=== PATIENT | female | born 1950 | race African-American/Black ===

== ENCOUNTER 2019-10-24 02:42 | Inpatient (IN) | payer OTHER ==
--- NOTE | 2019-10-24 02:57 | PDOC ---
History of Present Illness - General Chief Complaint: CVA/TIA Stated Complaint: POSSIBLE STROKE Time Seen by Provider: 10/24/19 02:52 - History of Present Illness Initial Comments: Ms. Gold is a 69 y/ woman w/hx pre-diabetes p/w dysarthria and L sided weakness. Her daughter reports that at approx 0100 she was woken by her mother, complaining of L sided weakness. She notes that her mother's speech pattern was different than baseline, and that she was slow to respond at that time, although she was answering questions coherently. She denies any similar prior episodes - no hx stroke, TIA. She reports that her weakness has since improved, but she still feels as if it is difficult to speak. Per her daughter she is at baseline at this time. She denies any chest pain, headache, shortness of breath, confusion, ongoing weakness, fevers, chills, dysuria. Last known well time: 0100 Past History - Past Medical History Allergies/Adverse Reactions: Allergies Allergy/AdvReac Type Severity Reaction Status Date / Time No Known Allergies Allergy Verified 10/24/19 02:47 Home Medications: Ambulatory Orders Cetirizine HCl [Zyrtec -] 10 mg PO DAILY 10/24/19 Aspirin [ASA -] 81 mg PO DAILY #30 tab.chew 10/25/19 Atorvastatin Ca [Lipitor] 10 mg PO HS #30 tablet 10/25/19 COPD: No - Psycho Social/Smoking Cessation Hx Smoking History: Never smoked Review of Systems - Review of Systems Able to Perform ROS?: Yes Comments:: ROS: GENERAL/CONSTITUTIONAL: No fever or chills. No weakness. HEAD, EYES, EARS, NOSE AND THROAT: No change in vision. No ear pain or dis charge. No sore throat. CARDIOVASCULAR: No chest pain or shortness of breath RESPIRATORY: No cough, wheezing, or hemoptysis. GASTROINTESTINAL: No nausea, vomiting, diarrhea or constipation. GENITOURINARY: No dysuria, frequency, or change in urination. MUSCULOSKELETAL: No joint or muscle swelling or pain. No neck or back pain. SKIN: No rash NEUROLOGIC: No headache, vertigo, loss of consciousness, or change in strength/sensation. ENDOCRINE: No increased thirst. No abnormal weight change HEMATOLOGIC/LYMPHATIC: No anemia, easy bleeding, or history of blood clots. ALLERGIC/IMMUNOLOGIC: No hives or skin allergy. *Physical Exam - Vital Signs Last Vital Signs Temp Pulse Resp BP Pulse Ox 98.3 F 95 H 18 153/84 98 10/24/19 02:47 10/24/19 02:47 10/24/19 02:47 10/24/19 02:47 10/24/19 02:47 - Physical Exam PE: GENERAL: Awake, alert, and fully oriented, in no acute distress HEAD: No signs of trauma, normocephalic, atraumatic EYES: PERRLA, EOMI, sclera anicteric, conjunctiva clear ENT: Auricles normal inspection, hearing grossly normal, nares patent, oropharynx clear without exudates. Moist mucosa NECK: Normal ROM, supple, no lymphadenopathy, JVD, or masses LUNGS: No distress, speaks full sentences, clear to auscultation bilaterally HEART: Regular rate and rhythm, normal S1 and S2, no murmurs, rubs or gallops, peripheral pulses normal and equal bilaterally. ABDOMEN: Soft, nontender, normoactive bowel sounds. No guarding, no rebound. No masses EXTREMITIES : Normal inspection, Normal range of motion, no edema. No clubbing or cyanosis NEUROLOGICAL: Cranial nerves II through XII grossly intact. 5/5 strength equally bilaterally between upper and lower extremities. Sensation to soft touch intact bilaterally. Normal speech, normal gait, no focal sensorimotor deficits SKIN: Warm, Dry, normal turgor, no rashes or lesions noted NIH Stroke Scale - Last Known Well Date/Time & Onset Date Last Known Well: 10/23/19 Time Last Known Well: 20:45 - Initial Evaluation Level of consciousness: Alert Ask patient the month and their age: Answers both correctly Ask patient to open & close eyes; make fist and let go: Obeys both correctly Best gaze (horizontal eye movement): Normal Visual field testing: No visual field loss Facial paresis (Show teeth/raise eyebrows/close eyes tight): Normal symmetrical movement Motor Function: Left Arm: Normal Motor Function: Right Arm: Normal (extends arm 90 (or 45) degrees for 10 seconds without drift Motor Function: Left Leg: Normal (extends leg 30 degrees for 5 seconds without drift) Motor Function: Right Leg: Normal (extends leg 30 degrees for 5 seconds without drift) Limb Ataxia: No ataxia Sensory(Use pinprick test arms,legs,trunk,face/side to side): Normal Best language (Describe picture, name items, read sentences): No Aphasia Dysarthria (read several words): Normal articulation Extinction and Inattention: No abnormality - Total Score NIH Stroke Scale Score: 0 tPA Exclusion checklist 3-4.5h - Time Elapsed Date last known well: 10/23/19 Time last known well: 20:45 Elaspsed time: 7 Day(s) and 17 Hour(s) and 36 Minutes - Thrombolytic Therapy Candidate Is patient eligible for thrombolytic therapy: No - Exclusion Criteria 3-4.5 hr SBP greater than 185 or DBP greater than 110mmHg despite tx: No Recent IC/spinal surgery,head trauma or stroke<3mos.: No Hx IC hemorrhage, IC neoplasm, AV malformation or aneurysm: No Active internal bleeding: No Blding diathesis(low plt ct, inc PTT,INR>1.7 or use of NOAC): No Symptoms suggest subarachnoid hemorrhage: No CT demonstrates multilobar infarct(>1/3 cerebral hemiphere): No Arterial puncture at noncompressible site in previous 7 days: No Blood glucose concentration less than 50mg/dL (2.7mmol/L): No - Ineligibility reason(s) Reasons No tPA given: Outside of window - delayed arrival TIA Risk Factors - ABCD Score Age: Age = or > 60 Blood Pressure: SBP =/> 140 Clinical Features of TIA: Speech impair w/o uni wk Duration: TIA duration 10-59 min Diabetes: No Total ABCD2 Score (0-7):: 4 Critical Care Time/MDM Note - Medical Decision Making Note: 69F w/hx pre-diabetes p/w acute onset dysphasia, L sided weakness, now resolved. Ddx includes CVA, TIA, hypoglycemia, infection, seizure. NIHSS: 0 Plan: CBC CMP EKG CXR BGM Cardiac profile CT Head without contrast PT/INR, APTT Neurology consult Dispo: Admit 10/24/19 05:22 CT read: No acute infarct visualized. Bulging noted at L cavernous sinus. Plan for admission, follow up inpatient MRI. --- CBC - wnl CMP - wnl Troponin - negative Neurology consult paged, awaiting callback. Plan for admission. --- Case endorsed to hospitalist team, patient admitted. Discharge - Discharge Information Problems reviewed: Yes Clinical Impression/Diagnosis: Cerebrovascular accident (CVA) Qualifiers: CVA mechanism: unspecified Qualified Code(s): I63.9 - Cerebral infarction, unspecified Condition: Stable Disposition: HOME - Admission Yes - Follow up/Referral - Patient Discharge Instructions - Post Discharge Activity
--- NOTE | 2019-10-24 03:16 | PDOC ---
Attending Attestation - Resident Resident Name: Yan Clark - ED Attending Attestation I have performed the following: I have examined & evaluated the patient, The case was reviewed & discussed with the resident, I agree w/resident's findings & plan - HPI HPI: 10/24/19 03:16 Pt had dysarthria at 8pm and left sided weakness 10/24/19 03:43 - Physicial Exam PE: 10/24/19 06:11 Agree with resident exam - Medical Decision Making 10/24/19 04:21 cardiac enzymes negative coags normal 10/24/19 05:28 Patient Name: AURE MIRZA THIS IS A PRELIMINARY REPORT FROM [facility] DATE OF SERVICE: 2019-10-24 03:25:37 IMAGES: 441 EXAM: HEAD CT WITHOUT CONTRAST HISTORY: Weakness COMPARISON: None. FINDINGS: No detectable infarct. Please note that early infarcts may not be detectable on CT. MRI is more sensitive. There is also bulging of the left cavernous sinus relative to the right. The possibility of left cavernous sinus mass or other lesion such as intracavernous carotid aneurysm should be considered. MRI without and with contrast would also be most helpful for evaluation of this area. No hemorrhage. No edema shift or herniation. Osseous structures are intact. 10/28/19 23:01 Pt will be signed out to the day team Heart Score/ECG Review - ECG Intrepretation Rhythm: Regular Rhythm - [place]: Normal - P and MA Delta Wave(s) Present: No WPW: No - QRS Poor R Wave Progression: No Q Wave Present: No - ST and T Early Repolarization: No Non Specific ST-T Wave changes: No Flattened T Waves: No Prolonged Q-T Interval: No - ECG Impressions Normal ECG: Yes Non-specific ST Elevation: No Ischemic Changes: No Bradycardia: No Torsades davonte Pointes: No WPW: No
[2019-10-24 03:58] LABS: INR 0.93 (0.83-1.09)
[2019-10-24 04:35] LABS: BASO % 0.9 % (0-2.0); EOS % 1.7 % (0-4.5); HEMATOCRIT 38.7 % (32.4-45.2); HEMOGLOBIN 12.7 GM/dL (10.7-15.3); LYMPH % 58.4 % (8-40); MCH 28.3 pg (25.7-33.7); MCHC 32.9 g/dl (32.0-36.0); MEAN PLT VOLUME 9.2 fl (7.5-11.1); MONO % 6.7 % (3.8-10.2); NEUT % 32.3 % (42.8-82.8); PLATELET COUNT 225 K/MM3 (134-434); RDW 14.3 % (11.6-15.6); WHITE BLOOD COUNT 7.3 K/mm3 (4.0-10.0)
[2019-10-24 05:26] LABS: ALBUMIN 3.7 g/dl (3.4-5.0); BILIRUBIN,TOTAL 0.3 mg/dL (0.2-1); BLOOD UREA NITROGEN 23.9 mg/dL (7-18); CALCIUM 9.4 mg/dL (8.5-10.1); POTASSIUM 4.1 mmol/L (3.5-5.1); TOT PROT 7.2 g/dl (6.4-8.2)
[2019-10-24] MEDS ORDERED: ASPIRIN 81 MG CHEWABLE TABLETS PO SCH (06:26)
[2019-10-24] MEDS ORDERED: ATORVASTATIN CA 80 MG TABLET (FP) PO STA (06:28)
--- NOTE | 2019-10-24 06:30 | HP ---
CHIEF COMPLAINT: dysarthria, L sided weakness PCP: Dr. Jasmina Viera HISTORY OF PRESENT ILLNESS: 69 y.o. F PMH pre-diabetes presenting for dysarthria & L sided weakness. Patient states these symptoms began around 1:45AM this morning and awoke her from sleep. She has never had these symptoms in the past and had her daughter call EMS to bring to into the ED. On arrival to the ED patient's symptoms were almost fully resolved. She denies any mental status changes, headaches or sensory/ motor deficits. Patient is able to ambulate well and ambulates without assistance at baseline. ER course was notable for: (1) ct head-- no acute infarct/ hemorrhage (2) (3) Recent Travel: denies PAST MEDICAL HISTORY: pre-diabetes PAST SURGICAL HISTORY: none Social History: Smoking: denies Alcohol: denies Drugs: denies Allergies No Known Allergies Allergy (Verified 10/24/19 02:47) Family history: DM, HTN in both parents. Father of PA at age 60. HOME MEDICATIONS: estrogen patch REVIEW OF SYSTEMS CONSTITUTIONAL: Absent: fever, chills, diaphoresis, generalized weakness, malaise, loss of appetite, weight change HEENT: Absent: rhinorrhea, nasal congestion, throat pain, throat swelling, difficulty swallowing, mouth swelling, ear pain, eye pain, visual changes CARDIOVASCULAR: Absent: chest pain, syncope, palpitations, irregular heart rate, lightheadedness , peripheral edema RESPIRATORY: Absent: cough, shortness of breath, dyspnea with exertion, orthopnea, wheezing, stridor, hemoptysis GASTROINTESTINAL: Absent: abdominal pain, abdominal distension, nausea, vomiting, diarrhea, constipation, melena, hematochezia GENITOURINARY: Absent: dysuria, frequency, urgency, hesitancy, hematuria, flank pain, genital pain MUSCULOSKELETAL: Absent: myalgia, arthralgia, joint swelling, back pain, neck pain SKIN: Absent: rash, itching, pallor HEMATOLOGIC/IMMUNOLOGIC: Absent: easy bleeding, easy bruising, lymphadenopathy, frequent infections ENDOCRINE: Absent: unexplained weight gain, unexplained weight loss, heat intolerance, cold intolerance NEUROLOGIC: dysarthria, Left face, LUE & LLE weakness Absent: headache, focal weakness or paresthesias, dizziness, unsteady gait, seizure, mental status changes, bladder or bowel incontinence PSYCHIATRIC: Absent: anxiety, depression, suicidal or homicidal ideation, hallucinations. PHYSICAL EXAMINATION Vital Signs - 24 hr 10/24/19 10/24/19 10/24/19 02:47 03:22 03:24 Temperature 98.3 F Pulse Rate 95 H 86 Pulse Rate [ Left] Respiratory 18 Rate Blood Pressure 153/84 Blood Pressure [Left Arm] O2 Sat by Pulse 98 97 98 Oximetry (%) 10/24/19 06:05 Temperature Pulse Rate Pulse Rate [ 61 Left] Respiratory 18 Rate Blood Pressure Blood Pressure 111/68 [Left Arm] O2 Sat by Pulse 99 Oximetry (%) GENERAL: Awake, alert, and fully oriented, in no acute distress. HEENT: NCAT. EOMI no visual field deficits. PERRLA. MMM. No JVD. LUNGS: Breath sounds equal, clear to auscultation bilaterally. No wheezes, and no crackles. No accessory muscle use. HEART: Regular rate and rhythm, normal S1 and S2 without murmur, rub or gallop. ABDOMEN: Soft, nontender, not distended, normoactive bowel sounds, no guarding MUSCULOSKELETAL: Normal range of motion at all joints. EXTREMITIES: 2+ pulses, warm, well-perfused. No peripheral edema. NEUROLOGICAL: Cranial nerves II-XII intact. Normal articulation. Motor 5/5 and sensory intact in all extremities. PSYCHIATRIC: Appropriate mood and affect. SKIN: Warm, dry, normal turgor, no rashes or lesions noted Laboratory Results - last 24 hr 10/24/19 10/24/19 10/24/19 03:00 03:00 03:00 WBC 7.3 RBC 4.50 Hgb 12.7 Hct 38.7 MCV 86.0 MCH 28.3 MCHC 32.9 RDW 14.3 Plt Count 225 MPV 9.2 Absolute Neuts (auto) 2.4 Neutrophils % 32.3 L Lymphocytes % 58.4 H Monocytes % 6.7 Eosinophils % 1.7 Basophils % 0.9 Nucleated RBC % 0 PT with INR INR PTT (Actin FS) 20.4 L Sodium Potassium Chloride Carbon Dioxide Anion Gap BUN Creatinine Est GFR (CKD-EPI)AfAm Est GFR (CKD-EPI)NonAf Random Glucose Calcium Total Bilirubin AST ALT Alkaline Phosphatase Creatine Kinase 137 Troponin I < 0.02 Total Protein Albumin 10/24/19 10/24/19 03:03 03:03 WBC RBC Hgb Hct MCV MCH MCHC RDW Plt Count MPV Absolute Neuts (auto) Neutrophils % Lymphocytes % Monocytes % Eosinophils % Basophils % Nucleated RBC % PT with INR 11.00 INR 0.93 PTT (Actin FS) Sodium 140 Potassium 4.1 Chloride 108 H Carbon Dioxide 27 Anion Gap 5 L BUN 23.9 H Creatinine 1.0 Est GFR (CKD-EPI)AfAm 67.51 Est GFR (CKD-EPI)NonAf 58.25 Random Glucose 126 H Calcium 9.4 Total Bilirubin 0.3 AST 24 ALT 22 Alkaline Phosphatase 67 Creatine Kinase Troponin I Total Protein 7.2 Albumin 3.7 ASSESSMENT/PLAN: 69 y.o. F PMH pre-diabetes presenting for dysarthria & L sided weakness. #CVA -CT head showing no acute hemorrhage/ infarct/ herniation. Noted a bulging L cavernous sinus relative to the right. Possible L cavernous sinus mass/lesion intracavernous carotid aneurysm. -NIHSS 0 on my exam -noted patient sing estrogen patch for menopausal symptoms -Dr. Graham consulted for neuro, f/u recs-- poss brain MRI today -ASA, high intensity statin -f/u ekg, echo, carotid US -Fall precautions -Physical therapy -speech & swallow -cardiac monitoring #Pre-diabetes -BGMs -F/u hba1c #FEN -gentle hydration -trend lytes replete prn -npo. f/u speech & swallow eval #PPX -SCDs #Dispo telemetry Visit type - Emergency Visit Emergency Visit: Yes Care time: The patient presented to the Emergency Department on the above date and was hospitalized for further evaluation of their emergent condition. - New Patient This patient is new to me today: Yes Date on this admission: 10/24/19 - Critical Care Critical Care patient: No ATTENDING PHYSICIAN STATEMENT I saw and evaluated the patient. I reviewed the resident's note and discussed the case with the resident. I agree with the resident's findings and plan as documented. SUBJECTIVE: OBJECTIVE: ASSESSMENT AND PLAN:
--- NOTE | 2019-10-24 06:31 | PN.NIHSS ---
NIH Stroke Scale - Initial Evaluation Level of consciousness: Alert Ask patient the month and their age: Answers both correctly Ask patient to open & close eyes; make fist and let go: Obeys both correctly Best gaze (horizontal eye movement): Normal Visual field testing: No visual field loss Facial paresis (Show teeth/raise eyebrows/close eyes tight): Normal symmetrical movement Motor Function: Left Arm: Normal Motor Function: Right Arm: Normal (extends arm 90 (or 45) degrees for 10 seconds without drift Motor Function: Left Leg: Normal (extends leg 30 degrees for 5 seconds without drift) Motor Function: Right Leg: Normal (extends leg 30 degrees for 5 seconds without drift) Limb Ataxia: No ataxia Sensory(Use pinprick test arms,legs,trunk,face/side to side): Normal Best language (Describe picture, name items, read sentences): No Aphasia Dysarthria (read several words): Normal articulation Extinction and Inattention: No abnormality - Total Score NIH Stroke Scale Score: 0
--- NOTE | 2019-10-24 06:39 | PN ---
Teaching Attending Note Name of Resident: April Santos ATTENDING PHYSICIAN STATEMENT I saw and evaluated the patient. I reviewed the resident's note and discussed the case with the resident. I agree with the resident's findings and plan as documented. SUBJECTIVE: 69-year-old woman with a history of prediabetes status post hysterectomy 20 years ago complained of left upper and lower extremity numbness as well as dysarthria that started at 1:50 AM on 10/23/2019. Symptoms resolved at 2:30 AM when patient arrived at hospital. She has never had these symptoms before. Also reports some mild dizziness but denied any headaches or focal weaknesses. Patient reports that she takes an estrogen patch, former smokersmoked for 20 years, quit 20 years ago. OBJECTIVE: Last Vital Signs Temp Pulse Resp BP Pulse Ox 98.3 F 78 16 112/64 96 10/24/19 02:47 10/24/19 06:05 10/24/19 06:05 10/24/19 06:05 10/24/19 06:05 On physical exam patient was a pleasant woman, not in any distress. Cranial nerves were intact, upper extremity motor was 5 out of 5, no sensory deficits appreciated. No patellar or bicipital hyperreflexia noted. Negative Babinski sign bilaterally, normal [id number] test bilaterally and kathleen test bilaterally. Abdomen soft, nontender, cardiovascular exam S1, S2 no murmurs. Lungs clear to auscultation bilaterally. Abnormal Lab Results 10/24/19 10/24/19 10/24/19 03:00 03:00 03:03 Neutrophils % 32.3 L Lymphocytes % 58.4 H PTT (Actin FS) 20.4 L Chloride 108 H Anion Gap 5 L BUN 23.9 H Random Glucose [address] readno detectable infarct, bulging of left cavernous sinus relative to the right. Possibility of left cavernous sinus mass or other lesion such as cavernous artery aneurysm should be considered. No hemorrhage, no edema, osseous structures intact. Chest x-ray reviewed. Overpenetrated, sharp costophrenic angles bilaterally. ASSESSMENT AND PLAN: 69-year-old woman with TIA. Symptoms now completely resolved.Passed bedside swallow test.Normal neuro exam. Admit to telemetry Aspirin Statin Transthoracic echo Carotid Doppler Follow-up official head CT report Physical therapy evaluation Neurology consult Neurochecks every 4 hours DVT prophylaxisSCDs
[2019-10-24] MEDS ORDERED: ATORVASTATIN CA 40 MG TABLET (FP) ONE ×2 (06:40→06:56)
[2019-10-24] MEDS: SODIUM CHLORIDE 1,000 ML IV SCH (07:04)
[2019-10-24 07:19] LABS: BASO % 0.8 % (0-2.0); EOS % 0.1 % (0-4.5); HEMATOCRIT 38.4 % (32.4-45.2); HEMOGLOBIN 12.8 GM/dL (10.7-15.3); LYMPH % 21.6 % (8-40); MCH 28.4 pg (25.7-33.7); MCHC 33.2 g/dl (32.0-36.0); MEAN CELL VOLUME 85.4 fl (80-96); MEAN PLT VOLUME 8.7 fl (7.5-11.1); MONO % 6.7 % (3.8-10.2); NEUT % 70.8 % (42.8-82.8); PLATELET COUNT 210 K/MM3 (134-434); WHITE BLOOD COUNT 6.6 K/mm3 (4.0-10.0)
[2019-10-24] MEDS ORDERED: ASPIRIN 325 MG TABLET PO SCH (07:19)
[2019-10-24 08:03] LABS: ALBUMIN 3.8 g/dl (3.4-5.0); ALK PHOS 66 U/L (45-117); ANION GAP 4 MMOL/L (8-16); BILIRUBIN,TOTAL 0.3 mg/dL (0.2-1); BLOOD UREA NITROGEN 20.4 mg/dL (7-18); CALCIUM 9.3 mg/dL (8.5-10.1); CHLORIDE 107 mmol/L (98-107); CHOLESTEROL 224 mg/dL (50-200); CO2 27 mmol/L (21-32); CREATININE 0.8 mg/dL (0.55-1.3); GLUCOSE,RANDOM 113 mg/dL (74-106); HDL CHOLESTEROL 114 mg/dL (40-60); LDL CHOLESTEROL (ONLY SJRH) 89 mg/dL (5-100); POTASSIUM 5.4 mmol/L (3.5-5.1); SGOT/AST 38 U/L (15-37); SGPT/ALT 24 U/L (13-61); SODIUM 138 mmol/L (136-145); TOT PROT 7.6 g/dl (6.4-8.2); TRIGLYCERIDES 45 mg/dL (0-150)
--- NOTE | 2019-10-24 09:11 | EKG ---
Test Reason : Blood Pressure : / mmHG Vent. Rate : 082 BPM Atrial Rate : 082 BPM P-R Int : 216 ms QRS Dur : 086 ms QT Int : 398 ms P-R-T Axes : 059 041 047 degrees QTc Int : 464 ms SINUS RHYTHM WITH 1ST DEGREE A-V BLOCK RIGHT ATRIAL ENLARGEMENT BORDERLINE ECG NO PREVIOUS ECGS AVAILABLE Confirmed by Katelyn Aguirre ([id number]) on 10/24/2019 9:11:26 AM Referred By: Confirmed By:Katelyn Aguirre
[2019-10-24 11:40] LABS: ANISOCYTOSIS 1+; MACROCYTOSIS 0; OVALOCYTE 1+; PLATELET ESTIMATE NORMAL; TARGET CELLS 1+; TEAR DROP CELLS 1+
--- NOTE | 2019-10-24 14:22 | CONSULT ---
Admitting History and Physical - Admission History of Present Illness: Per EMR HISTORY OF PRESENT ILLNESS: 69 y.o. F PMH pre-diabetes presenting for dysarthria & L sided weakness. Patient states these symptoms began around 1:45AM this morning and awoke her from sleep. She has never had these symptoms in the past and had her daughter call EMS to bring to into the ED. On arrival to the ED patient's symptoms were almost fully resolved Pt reported that she had difficulty talking, "a disconnect" and it was unclear. Symptoms resolved when I evaluated her at 2:20 pm in ED. Pt tolerating PO diet without difficulty History Source: Patient Limitations to Obtaining History: No Limitations - Smoking History Smoking history: Never smoked - Social History Occupation: Legal assistent at [employer] History - Admission Reason For Visit: CEREBROVASCULAR ACCIDENT (CVA) - Diagnostics X-ray: Report Reviewed CT Scan: Report Reviewed Other: Report Reviewed (carotid) - General Mental Status: Alert and Oriented, Awake and Alert, Able to Follow Commands Attention: Intact Ability to Follow Directions: Excellent Head/Neck Control: WFL - Hearing Hearing: Normal Speech Evaluation - Communication Primary Language: [place] Communication: Yes: Within Normal Limits Oral Expression Ability: Yes: No Impairment - Speech Production Able to Make Needs Known: Yes: WNL Intelligibility: Yes: WNL - Speech Characteristics Voice Loudness: Normal Voice Pitch: Yes: Normal Voice Phonatory-based Quality: Yes: Normal Speech Pattern: Normal Speech Clarity: < 100% Nasal Resonance: Normal Articulation: Yes: Precise Rate of Speech: Intact - Language/Auditory Comprehension Follows: Yes: Complex Commands Observation: Able to respond to yes/no queries: Yes, Yes/No Confusion: No, Comprehends Conversational Speech: Yes - Language/Verbal Expression Able to Respond to Simple Queries: Yes: WNL Able to Communicate Wants and Needs: Yes: WNL Functional Communication Status: Yes: WNL - Memory/Perception termite control technician Memory: Yes: WNL Short Term Memory: Yes: WNL - Swallow Evaluation/Bedside Assessment Current Nutritional Intake: Regular, Thin Liquids Oral Secretions: Yes: WFL Dentition: Yes: Adequate Facial Symmetry at Rest: Symmetrical Facial Symmetry on Retraction: Symmetrical Facial Movement: Controlled Sensation: Normal Against Resistance Opening: Normal Against Resistance Closing: Normal Pucker Lips: Normal Smile: Normal Lingual Movement: Normal, Symmetric Lingual Speed of Movement: Normal Lingual Movement Strgth Against Opposition: Normal Lingual Movement Characteristics: Normal Velopharyngeal Movement: Normal Laryngeal Elevation: WFL Laryngeal Movement: Able to Palpate Rate of Intake: WFL Bolus Size: WFL Labial Seal: WFL Chewing: WFL Oral Prep Time: WFL A-P Transit: WFL Pocketing: None Timing of Swallow: WFL Coughing/Throat Clear: No Change in Voice: No Recommendations - Speech Evaluation, Impression/Plan Impression: Symptoms resolved. Speech, language, cognition, swallowing intact - Dysphagia Impressions/Plan Swallowing Skills: [facility] Dysphagia Impressions: No Impairment *Silent aspiration: cannot be R/O at bedside - Recommendations Diet Consistency: Regular Medication Administration: Whole with water Liquids: Thin Liquids
--- NOTE | 2019-10-24 15:48 | ECHO ---
Name: AURE MIRZA Exam:Adult Echocardiogram Study Date: 10/24/2019 03:19 PM Age: 69 yrs Reason For Study: r/o CVA, TIA, STROKE Height: 62 in Weight: 150 lb BSA: 1.7 m2 MMode/2D Measurements & Calculations IVSd: 1.3 cm Ao root diam: 3.2 cm LVIDd: 3.7 cm LA dimension: 3.0 cm LVIDs: 2.3 cm ACS: 2.0 cm LVPWd: 1.2 cm EDV(Teich): 57.4 ml LVOT diam: 1.9 cm ESV(Teich): 17.6 ml LAV (MOD-bp): 61.1 ml TAPSE: 2.5 cm RV S Mukesh: 16.0 cm/sec Doppler Measurements & Calculations MV E max mukesh: 77.1 cm/sec Ao V2 max: 146.6 cm/sec MV A max mukesh: 83.4 cm/sec Ao max P.6 mmHg MV E/A: 0.92 Ao V2 mean: 107.8 cm/sec MV dec time: 0.21 sec Ao mean P.0 mmHg Ao V2 VTI: 28.1 cm JOSEPH(I,D): 3.0 cm2 JOSEPH(V,D): 2.7 cm2 LV V1 max P.3 mmHg SV(LVOT): 84.6 ml LV V1 mean P.7 mmHg LV V1 max: 134.8 cm/sec LV V1 mean: 89.6 cm/sec LV V1 VTI: 29.0 cm TR max mukesh: 217.2 cm/sec PA V2 max: 101.8 cm/sec TR max P.9 mmHg PA max P.1 mmHg Med Peak E' Mukesh: 9.0 cm/sec Med E/e': 8.5 Lat Peak E' Mukesh: 12.7 cm/sec Lat E/e': 6.1 Procedure Study Quality: Fair. Left Ventricle The left ventricle is normal in size. There is mild concentric left ventricular hypertrophy. The left ventricular ejection fraction is normal. Ejection Fraction = 65-70%. The transmitral spectral Doppler flow pattern is suggestive of impaired LV relaxation. Right Ventricle The right ventricle is normal in size and function. Atria Borderline left atrial enlargement. Mitral Valve The mitral valve leaflets appear normal. There is no evidence of stenosis, fluttering, or prolapse. T here is trace mitral regurgitation. Tricuspid Valve The tricuspid valve is normal. There is trace tricuspid regurgitation. Aortic Valve The aortic valve is normal in structure and function. Pulmonic Valve The pulmonic valve is not well visualized. Great Vessels The aortic root is normal size. Pericardium/Pleura There is no pericardial effusion. Interpretation Summary LV: Normal size,mild LVH,normal systolic function,EF 65-70%,impaired relaxation RV: Normal Trace TR,MR. Katelyn Aguirre 10/24/2019 03:48 PM
[2019-10-24] MEDS ORDERED: SODIUM CHLORIDE 0.9% 500 ML INFUS.BAG IV ONE (17:52)
--- NOTE | 2019-10-24 17:54 | PN ---
Physical Exam: SUBJECTIVE: Patient seen and examined at bedside, admitted for TIA involving parathesia of LUE,LLL and dysarthria, symptoms now resolved, awaiting MRI/neuro eval, VS otherwise stable. OBJECTIVE: Vital Signs Period Temp Pulse Resp BP Sys/Rolon Pulse Ox Last 24 Hr 98.3 F 78-95 16-18 112-153/64-84 96-98 GENERAL: The patient is awake, alert, and fully oriented, in no acute distress. HEAD: Normal with no signs of trauma. EYES: PERRL, extraocular movements intact, sclera anicteric, conjunctiva clear. No ptosis. ENT: Ears normal, nares patent, oropharynx clear without exudates, moist mucous membranes. NECK: Trachea midline, full range of motion, supple. LUNGS: Breath sounds equal, clear to auscultation bilaterally, no wheezes, no crackles, no accessory muscle use. HEART: Regular rate and rhythm, S1, S2 without murmur, rub or gallop. ABDOMEN: Soft, nontender, nondistended, normoactive bowel sounds, no guarding, no rebound, no hepatosplenomegaly, no masses. EXTREMITIES: 2+ pulses, warm, well-perfused, no edema. NEUROLOGICAL: Cranial nerves II through XII grossly intact. Normal speech, gait not observed. PSYCH: Normal mood, normal affect. SKIN: Warm, dry, normal turgor, no rashes or lesions noted Laboratory Results - last 24 hr 10/24/19 10/24/19 10/24/19 03:00 03:00 03:00 WBC 7.3 RBC 4.50 Hgb 12.7 Hct 38.7 MCV 86.0 MCH 28.3 MCHC 32.9 RDW 14.3 Plt Count 225 MPV 9.2 Absolute Neuts (auto) 2.4 Neutrophils % 32.3 L Neutrophils % (Manual) 31.0 L Band Neutrophils % 0.0 Lymphocytes % 58.4 H Lymphocytes % (Manual) 35.0 Monocytes % 6.7 Monocytes % (Manual) 5 Eosinophils % 1.7 Eosinophils % (Manual) 0.0 Basophils % 0.9 Basophils % (Manual) 1.0 Myelocytes % (Man) 0 Promyelocytes % (Man) 0 Blast Cells % (Manual) 0 Nucleated RBC % 0 Metamyelocytes 0 Hypochromia 0 Platelet Estimate Normal Platelet Comment Present Polychromasia 0 Poikilocytosis 1+ Anisocytosis 1+ Microcytosis 1+ Macrocytosis 0 Target Cells 1+ Tear Drop Cells 1+ Ovalocytes 1+ Eleazar Cells 1+ PT with INR INR PTT (Actin FS) 20.4 L Sodium Potassium Chloride Carbon Dioxide Anion Gap BUN Creatinine Est GFR (CKD-EPI)AfAm Est GFR (CKD-EPI)NonAf Random Glucose Hemoglobin A1c % Calcium Total Bilirubin AST ALT Alkaline Phosphatase Creatine Kinase 137 Creatine Kinase Index CK-MB (CK-2) Troponin I < 0.02 Total Protein Albumin Triglycerides Cholesterol Total LDL Cholesterol HDL Cholesterol Blood Type Antibody Screen 10/24/19 10/24/19 10/24/19 03:03 03:03 07:00 WBC RBC Hgb Hct MCV MCH MCHC RDW Plt Count MPV Absolute Neuts (auto) Neutrophils % Neutrophils % (Manual) Band Neutrophils % Lymphocytes % Lymphocytes % (Manual) Monocytes % Monocytes % (Manual) Eosinophils % Eosinophils % (Manual) Basophils % Basophils % (Manual) Myelocytes % (Man) Promyelocytes % (Man) Blast Cells % (Manual) Nucleated RBC % Metamyelocytes Hypochromia Platelet Estimate Platelet Comment Polychromasia Poikilocytosis Anisocytosis Microcytosis Macrocytosis Target Cells Tear Drop Cells Ovalocytes Eleazar Cells PT with INR 11.00 INR 0.93 PTT (Actin FS) Sodium 140 Potassium 4.1 Chloride 108 H Carbon Dioxide 27 Anion Gap 5 L BUN 23.9 H Creatinine 1.0 Est GFR (CKD-EPI)AfAm 67.51 Est GFR (CKD-EPI)NonAf 58.25 Random Glucose 126 H Hemoglobin A1c % 6.1 Calcium 9.4 Total Bilirubin 0.3 AST 24 ALT 22 Alkaline Phosphatase 67 Creatine Kinase Creatine Kinase Index CK-MB (CK-2) Troponin I Total Protein 7.2 Albumin 3.7 Triglycerides Cholesterol Total LDL Cholesterol HDL Cholesterol Blood Type Antibody Screen 10/24/19 10/24/19 10/24/19 07:00 07:00 07:00 WBC 6.6 RBC 4.50 Hgb 12.8 Hct 38.4 MCV 85.4 MCH 28.4 MCHC 33.2 RDW 14.0 Plt Count 210 MPV 8.7 Absolute Neuts (auto) 4.6 Neutrophils % 70.8 D Neutrophils % (Manual) Band Neutrophils % Lymphocytes % 21.6 D Lymphocytes % (Manual) Monocytes % 6.7 Monocytes % (Manual) Eosinophils % 0.1 D Eosinophils % (Manual) Basophils % 0.8 Basophils % (Manual) Myelocytes % (Man) Promyelocytes % (Man) Blast Cells % (Manual) Nucleated RBC % 0 Metamyelocytes Hypochromia Platelet Estimate Platelet Comment Polychromasia Poikilocytosis Anisocytosis Microcytosis Macrocytosis Target Cells Tear Drop Cells Ovalocytes [place] Cells PT with INR INR PTT (Actin FS) Sodium 138 Potassium 5.4 H Chloride 107 Carbon Dioxide 27 Anion Gap 4 L BUN 20.4 H Creatinine 0.8 Est GFR (CKD-EPI)AfAm 88.42 Est GFR (CKD-EPI)NonAf 76.29 Random Glucose 113 H Hemoglobin A1c % Calcium 9.3 Total Bilirubin 0.3 AST 38 H ALT 24 Alkaline Phosphatase 66 Creatine Kinase 194 H Creatine Kinase Index 0.7 CK-MB (CK-2) 1.5 Troponin I < 0.02 Total Protein 7.6 Albumin 3.8 Triglycerides 45 Cholesterol 224 H Total LDL Cholesterol 89 HDL Cholesterol 114 H Blood Type O NEGATIVE Antibody Screen Negative Active Medications Generic Name Dose Route Start Last Admin Trade Name Freq PRN Reason Stop Dose Admin Aspirin 81 mg 10/25/19 10:00 Ecotrin - PO DAILY NAVEED Sodium Chloride 1,000 mls @ 42 mls/hr 10/24/19 06:30 10/24/19 07:04 Normal Saline - IV 42 mls/hr ASDIR NAVEED Administration Sodium Chloride 1,000 ml 10/24/19 17:52 Normal Saline - IV 10/24/19 17:53 ONCE ONE ASSESSMENT/PLAN: 69 AA female, h/o pre-DM2, otherwise no significant PMHx, presents with episode of dysarthria with L sided weakness/parathesia, now resolved. TIA CT-head neg. for infarct/bleed, awaiting MRI of brain symptoms resolved currently, NIHSS 0 cont. ASA, high intensity statin, would be reasonable to DC estrogen patch in view of cerebrovascular infarct risk Echo WNL, Carotid US no HD significant blockage Fall precautions PT eval, SS eval Cont. Tele monitoring, neurochecks Neuro consult: Dr Graham Pre DM2 counseld on diet, exercise, weight loss DM diet may benefit from Metformin as outpatient DVT ppx: Lovenox SC Tele monitoring Visit type - Emergency Visit Emergency Visit: Yes ED Registration Date: 10/24/19 Care time: The patient presented to the Emergency Department on the above date and was hospitalized for further evaluation of their emergent condition. - New Patient This patient is new to me today: Yes Date on this admission: 10/24/19 - Critical Care Critical Care patient: No - Discharge Referral Referred to [facility] Med [facility].: No
[2019-10-24 22:48] VITALS: BMI 27.9
[2019-10-25] MEDS: SODIUM CHLORIDE 1,000 ML IV SCH (06:53)
[2019-10-25 07:50] LABS: BASO % 0.8 % (0-2.0); EOS % 1.2 % (0-4.5); HEMATOCRIT 39.4 % (32.4-45.2); HEMOGLOBIN 12.9 GM/dL (10.7-15.3); LYMPH % 45.7 % (8-40); MCH 27.9 pg (25.7-33.7); MCHC 32.8 g/dl (32.0-36.0); MEAN CELL VOLUME 85.2 fl (80-96); MEAN PLT VOLUME 8.7 fl (7.5-11.1); MONO % 6.7 % (3.8-10.2); NEUT % 45.6 % (42.8-82.8); PLATELET COUNT 225 K/MM3 (134-434); RBC 4.62 M/mm3 (3.60-5.2); RDW 14.2 % (11.6-15.6); WHITE BLOOD COUNT 6.3 K/mm3 (4.0-10.0)
[2019-10-25 08:10] LABS: ALBUMIN 3.6 g/dl (3.4-5.0); BILIRUBIN,TOTAL 0.6 mg/dL (0.2-1); BLOOD UREA NITROGEN 13.3 mg/dL (7-18); CALCIUM 9.3 mg/dL (8.5-10.1); CREATININE 0.8 mg/dL (0.55-1.3); TOT PROT 7.1 g/dl (6.4-8.2)
[2019-10-25 09:51] LABS: URINE APPEARANCE CLEAR; URINE BILIRUBIN NEGATIVE (NEGATIVE); URINE COLOR YELLOW; URINE GLUCOSE (UA) NEGATIVE (NEGATIVE); URINE KETONE NEGATIVE (NEGATIVE); URINE LEUK ESTERASE NEGATIVE (NEGATIVE); URINE NITRITE NEGATIVE (NEGATIVE); URINE PROTEIN NEGATIVE (NEGATIVE)
[2019-10-25] MEDS ORDERED: ASPIRIN COATED 81 MG TABLET.EC PO SCH (10:00)
--- NOTE | 2019-10-25 14:23 | CON.NEURO ---
Consult Consult Specialty:: [place] Referred by:: PCP Reason for Consultation:: TIA - History of Present Illness History of Present Illness: this is a very pleasant 69-year-old right-handed man with history of diabetes not on any medication who presented to the hospital with a chief complaint of difficulty expressing himself and difficulty with left-sided numbness questionable weakness patient was admitted for questionable TIA upon presentation to the emergency room the NIH stroke scale was 0. Patient was not a candidate for TPA. CAT scan revealed no evidence of acute pathology patient was admitted to the telemetry for further treatment and management I reviewed MRI images of the patient which revealed no evidence of acute pathology. No evidence of cardiac arrhythmia. - History Source History Provided By: Patient Limitations to Obtaining History: No Limitations - Past Medical History ...: No - Alcohol/Substance Use Hx Alcohol Use: Yes (daily glass wine) - Smoking History Smoking history: Never smoked - Social History Occupation: Legal assistent at [employer] Home Medications - Allergies Allergies/Adverse Reactions: Allergies Allergy/AdvReac Type Severity Reaction Status Date / Time No Known Allergies Allergy Verified 10/24/19 02:47 - Home Medications Home Medications: Ambulatory Orders Cetirizine HCl [Zyrtec -] 10 mg PO DAILY 10/24/19 Family Medical History Family History: Unremarkable Review of Systems - Review of Systems Constitutional: reports: No Symptoms Eyes: reports: No Symptoms HENT: reports: No Symptoms Neurological: reports: Headache, Numbness, Parasthesia Physical Exam-Neuro Vital Signs: Vital Signs Temperature 98.6 F 10/25/19 13:33 Pulse Rate 73 10/25/19 13:33 Respiratory Rate 14 10/25/19 13:33 Blood Pressure 121/77 10/25/19 13:33 O2 Sat by Pulse Oximetry (%) 96 10/25/19 09:00 Constitutional: Yes: Well Nourished Neck: Yes: WNL Cardiovascular: Yes: WNL Labs: CBC, BMP 10/25/19 07:13 10/25/19 07:13 INR, PTT INR 0.93 (0.83-1.09) 10/24/19 03:03 - Neuro Exam Level Of Consciousness: Yes: Oriented to Person, Oriented to Place, Oriented to Time Eyes: Yes: PERRLA Speech: WNL Dominant Hand: Right Cranial Nerves II-XII Intact: Yes Gag: Present DTR's: 1+ Left Bicep, 1+ Right Bicep, 1+ Left Tricep, 1+ Right Tricep Response to light touch: Normal Response to pain prick: Normal Response to temperature: Normal Motor Strength: 3/5: Left Arm, Right Arm, Left Leg, Right Leg Gait: Deferred NIH Stroke Scale - Last Known Well Date/Time & Onset Date Last Known Well: 10/24/19 Time Last Known Well: 08:00 - Initial Evaluation Level of consciousness: Alert Ask patient the month and their age: Answers both correctly Ask patient to open & close eyes; make fist and let go: Obeys both correctly Best gaze (horizontal eye movement): Normal Visual field testing: No visual field loss Motor Function: Left Arm: Normal Motor Function: Right Arm: Normal (extends arm 90 (or 45) degrees for 10 seconds without drift Motor Function: Left Leg: Normal (extends leg 30 degrees for 5 seconds without drift) Motor Function: Right Leg: Normal (extends leg 30 degrees for 5 seconds without drift) Limb Ataxia: No ataxia Sensory(Use pinprick test arms,legs,trunk,face/side to side): Normal Dysarthria (read several words): Normal articulation Imaging - Results X-ray: Image Reviewed MRI: Image Reviewed Problem List - Problems (1) TIA (transient ischemic attack) Code(s): G45.9 - TRANSIENT CEREBRAL ISCHEMIC ATTACK, UNSPECIFIED Assessment/Plan 1. ASA 81 mg po qd 2. Crestor 5 mg po qd 3. Homocysteine level Thank you BENJAMIN Koo MD
--- NOTE | 2019-10-25 14:46 | DS ---
Physical Exam: SUBJECTIVE: Patient seen and examined at bedside, denies complaints, MRI done and was negative for CVA or acute pathology, pt. cleared by Neurology service, pt. ready for DC and to follow up in clinic. OBJECTIVE: Vital Signs Period Temp Pulse Resp BP Sys/Rolon Pulse Ox Last 24 Hr 97.9 F-98.6 F 66-82 14-20 104-121/58-77 96-97 PHYSICAL EXAM GENERAL: The patient is awake, alert, and fully oriented, in no acute distress. HEAD: Normal with no signs of trauma. EYES: PERRL, extraocular movements intact, sclera anicteric, conjunctiva clear. ENT: Ears normal, nares patent, oropharynx clear without exudates, moist mucous membranes. NECK: Trachea midline, full range of motion, supple. LUNGS: Breath sounds equal, clear to auscultation bilaterally, no wheezes, no crackles, no accessory muscle use. HEART: Regular rate and rhythm, S1, S2 without murmur, rub or gallop. ABDOMEN: Soft, nontender, nondistended, normoactive bowel sounds, no guarding, no rebound, no hepatosplenomegaly, no masses. EXTREMITIES: 2+ pulses, warm, well-perfused, no edema. NEUROLOGICAL: Cranial nerves II through XII grossly intact. Normal speech, gait not observed. PSYCH: Normal mood, normal affect. SKIN: Warm, dry, normal turgor, no rashes or lesions noted. LABS Laboratory Results - last 24 hr 10/25/19 10/25/19 10/25/19 07:13 07:13 09:08 WBC 6.3 RBC 4.62 Hgb 12.9 Hct 39.4 MCV 85.2 MCH 27.9 MCHC 32.8 RDW 14.2 Plt Count 225 MPV 8.7 Absolute Neuts (auto) 2.9 Neutrophils % 45.6 D Lymphocytes % 45.7 H D Monocytes % 6.7 Eosinophils % 1.2 D Basophils % 0.8 Nucleated RBC % 0 Sodium 140 Potassium 4.0 Chloride 108 H Carbon Dioxide 27 Anion Gap 6 L BUN 13.3 Creatinine 0.8 Est GFR (CKD-EPI)AfAm 88.42 Est GFR (CKD-EPI)NonAf 76.29 Random Glucose 107 H Calcium 9.3 Total Bilirubin 0.6 AST 21 ALT 22 Alkaline Phosphatase 64 Total Protein 7.1 Albumin 3.6 Urine Color Yellow Urine Appearance Clear Urine pH 7.0 Ur Specific [place] 1.017 Urine Protein Negative Urine Glucose (UA) Negative Urine Ketones Negative Urine Blood Negative Urine Nitrite Negative Urine Bilirubin Negative Urine Urobilinogen 1.0 Ur Leukocyte Esterase Negative HOSPITAL COURSE: 69 AA female, h/o pre-DM2, otherwise no significant PMHx, presents with episode of dysarthria with L sided weakness/parathesia, pt. symptoms resolved when arriving to ED. CT brain and MRI of brain did not reveal any acute pathology, including CVA. Echo and carotids were grossly unremarkable for acute pathology. Patient was monitored and evaluated by neurology service and may be cleared for DC with ASA 81mg daily and Crestor 5mg daily with follow up with her PCP and Dr. Koo (neurology clinic). TIA CT-head neg. for infarct/bleed, MRi negative for acute pathology symptoms resolved currently, NIHSS 0 cont. ASA 81mg daily, Crestor 5mg daily, reasonable to stop using estrogen patch (stroke risk) and speak to [employer]/PCP regarding alternative treatment Echo WNL, Carotid US no HD significant blockage PT and SS cleared and WNL neurology consult: Dr Koo Pre DM2 counseld on diet, exercise, weight loss DM diet may benefit from Metformin as outpatient however patient wants to continue diet and exercise instead of using Metformin Disposition: DC home with Neurology clinic and PCP follow up. Date of Admission:10/24/19 Date of Discharge: 10/25/19 Minutes to complete discharge: 30 Discharge Summary Problems reviewed: Yes Reason For Visit: CEREBROVASCULAR ACCIDENT (CVA) Current Active Problems TIA (transient ischemic attack) (Acute) Condition: Good - Instructions Diet, Activity, Other Instructions: You were admitted for evaluation of your left upper and left lower extremity weakness and parasthesia and dysarthria. You underwent CT and MRI of the brain which did not show any infarcts. You also underwent a carotid ultrasound and Echo which were unremarkable for acute pathology. You will be started on Aspirin 81mg daily, Crestor 5mg daily, and you should follow up with your primary care doctor and Dr. Koo (neurologist) in 1 week. If you feel return of your symptoms or chest pain, shortness of breath, nausea, vomiting, dizziness , abdominal pain, bleeding from any source, confusion, loss of consciousness, please return to ED immediately. Referrals: Jasmina Viera [Primary Care Provider] - Shilpi Koo MD [Staff Physician] - Disposition: HOME - Home Medications Comprehensive Discharge Medication List: Ambulatory Orders Cetirizine HCl [Zyrtec -] 10 mg PO DAILY 10/24/19 Aspirin [ASA -] 81 mg PO DAILY #30 tab.chew 10/25/19 Rosuvastatin Calcium [Crestor] 5 mg PO DAILY #30 tablet 10/25/19 This patient is new to me today: No Emergency Visit: Yes ED Registration Date: 10/24/19 Care time: The patient presented to the Emergency Department on the above date and was hospitalized for further evaluation of their emergent condition. Critical Care patient: No - Discharge Referral Referred to [facility] Med P.C.: No
[2019-10-25 18:22] VITALS: BP 109/68; PULSE 68; TEMP 98.8
== END 2019-10-25 18:33 | disposition home or self-care (01) | DRG 69 ==
LOC: JER 02:42 → JERBED 05:53 → J4S 21:25
PROVIDERS: ADMIT Internal Medicine
DX: G45.9 Transient cerebral ischemic attack, unspecified (principal); Z87.891 Personal history of nicotine dependence; R47.1 Dysarthria and anarthria; R73.03 Prediabetes; R42 Dizziness and giddiness; R53.1 Weakness
CPT/HCPCS: 36415; 70450-TC; 70551-TC; 71045-TC-FY; 80053; 80061; 81003; 82550; 82553; 83036; 83090; 83721; 84484; 85025; 85610; 85730; 86850; 86900; 86901; 87086; 93005; 93010; 93306-TC; 93880-TC; 99285-25; J7030